=== PATIENT | male | born 1950 | race Caucasian/White ===

== ENCOUNTER → 2018-06-16 | Outpatient (CLI) | payer OTHER | LOC: HYPER 07:06 | DX: S91.052D Open bite, left ankle, subsequent encounter (principal); I10 Essential (primary) hypertension; E78.00 Pure hypercholesterolemia, unspecified; M54.16 Radiculopathy, lumbar region; J45.909 Unspecified asthma, uncomplicated; W54.0XXD Bitten by dog, subsequent encounter ==

== ENCOUNTER → 2018-06-29 | Outpatient (CLI) | payer OTHER | LOC: HYPER 06:58 | DX: S91.052D Open bite, left ankle, subsequent encounter (principal); E78.00 Pure hypercholesterolemia, unspecified; I10 Essential (primary) hypertension; M54.16 Radiculopathy, lumbar region; J45.909 Unspecified asthma, uncomplicated; W54.0XXD Bitten by dog, subsequent encounter ==

== ENCOUNTER → 2018-07-13 | Outpatient (CLI) | payer OTHER | LOC: HYPER 06:56 | DX: S91.052D Open bite, left ankle, subsequent encounter (principal); E78.00 Pure hypercholesterolemia, unspecified; I10 Essential (primary) hypertension; J45.909 Unspecified asthma, uncomplicated; K21.9 Gastro-esophageal reflux disease without esophagitis; M54.16 Radiculopathy, lumbar region; M19.90 Unspecified osteoarthritis, unspecified site; W54.0XXD Bitten by dog, subsequent encounter ==

== ENCOUNTER → 2018-07-28 | Outpatient (CLI) | payer OTHER | LOC: HYPER 07:21 | DX: S91.052D Open bite, left ankle, subsequent encounter (principal); I10 Essential (primary) hypertension; E78.00 Pure hypercholesterolemia, unspecified; J45.909 Unspecified asthma, uncomplicated; M19.90 Unspecified osteoarthritis, unspecified site; M54.16 Radiculopathy, lumbar region; W54.0XXD Bitten by dog, subsequent encounter ==

== ENCOUNTER → 2018-08-18 | Outpatient (CLI) | payer OTHER | LOC: HYPER 06:41 | DX: L97.821 Non-pressure chronic ulcer of other part of left lower leg limited to breakdown of skin (principal); S91.052D Open bite, left ankle, subsequent encounter; E78.00 Pure hypercholesterolemia, unspecified; I10 Essential (primary) hypertension; J45.909 Unspecified asthma, uncomplicated; M19.90 Unspecified osteoarthritis, unspecified site; M54.16 Radiculopathy, lumbar region; W54.0XXD Bitten by dog, subsequent encounter ==

== ENCOUNTER → 2018-09-17 | Outpatient (CLI) | payer OTHER | LOC: HYPER 06:55 | DX: S91.052D Open bite, left ankle, subsequent encounter (principal); E78.00 Pure hypercholesterolemia, unspecified; I10 Essential (primary) hypertension; J45.909 Unspecified asthma, uncomplicated; K21.9 Gastro-esophageal reflux disease without esophagitis; M19.90 Unspecified osteoarthritis, unspecified site; M54.16 Radiculopathy, lumbar region; W54.0XXD Bitten by dog, subsequent encounter ==